=== PATIENT | male | born 1965 | race Caucasian/White ===

== ENCOUNTER 2019-07-21 12:30 | Outpatient (RCR) | payer BC, SELFPAY ==
[2019-07-09 09:49] VITALS: BP_SYST 80
--- NOTE | 2019-07-09 11:14 | PTOPEVAL ---
Thank you for referring Juan Manuel Sanchez to [facility]. Please review, sign, date and return this plan of care KITA. Pt referred to therapy due to adhesive capsulitis of left shoulder. He demonstrates impairments of shoulder with range, strength and function. He requires additional skilled therapy 2x/wk x 6-8 wk to improve impairments and achieve therapy goals. I agree with and certify that the following plan of care is medically necessary. Referring Physician Date Attending Provider: Tyson Pettit MD *PT Outpatient Evaluation Start: 07/09/19 09:48 Freq: Status: Active Protocol: Document 07/09/19 09:49 MARRY (Rec: 07/09/19 10:51 MARRY [id number]) Therapy Assessment Status Assessment Status Assessment Status Evaluation Outpatient Past Medical History Past Medical History Source of Past Medical History Patient,Recalled from Previous Visit, Confirmed with Patient /Family Cardiovascular History Hx Hypertension Yes Gastrointestinal History Hx Gastroesophageal Reflux Disease Yes Musculoskeletal History Hx Other Musculoskeletal Disorders Yes: R shoulder adhesive capsulitis 2015, left shoulder adhesive capsulitis Endocrine History Hx Hypothyroidism Yes Hx Other Endocrine Disorders Yes: weight gain Evaluation Information Problem Diagnosis left shoulder adhesive capsulitis Onset 2 months ago Cause unknown Additional Evaluation Detail history of right shoulder adhesive capsulitis Subjective Information Reports he is performing self Query Text:As Reported By Patient/ treatment to address his Family decreased shoulder range. He cut down 60 trees for the past year that he questions contributed to his pain. Massage therapist coming to his house every 2 wk for the past 5 years. Received a cortison injections, biofreeze , over the counter medication, and self treatment to improve pain and motion. He is able to perform all activities below shoulder level. He reports pain and limitations with any motions over shoulder or with reaching behind. Diagnostic Tests X-Rays For This Problem Yes Previous Treatments Previous Treatments For Thi
--- NOTE | 2019-08-12 13:21 | PCPTNOTE ---
Admitting Provider: Attending Provider: Tyson Pettit MD Patient:Juan Manuel Sanchez Date of :1965 Discharge Note Patient has not returned for any further treatments since 07/21/2019, therefore he will be discharged at this time. Patient?s initial visit was on 07/09/2019 09:45 and he had a total of 2 visits. The goals have been not been met. Thank you for referring this patient to [facility]. Please review, sign, date and return this discharge summary KITA. I have been updated about the patient's current status and I agree with discharge from the above service at this time. Referring Physician Date
== END 2019-08-12 15:44 | disposition home or self-care (01) ==
LOC: ANHPT 12:30
PROVIDERS: PCP Family Medicine; Visit Provider Orthopaedic Surgery
DX: M75.00 Adhesive capsulitis of unspecified shoulder (principal)
CPT/HCPCS: 97035; 97110; 97140; 97162

== ENCOUNTER 2020-02-03 02:20 | Outpatient (CLI) | payer BC, SELFPAY ==
[2020-02-03 22:42] LABS: SARS-CoV-2 RNA PCR Negative
== END 2020-02-03 02:21 | disposition home or self-care (01) ==
LOC: ANHCOVIDDT 02:20
PROVIDERS: PCP Family Medicine; Visit Provider Otolaryngology
DX: Z01.812 Encounter for preprocedural laboratory examination (principal); Z20.828 Contact with and (suspected) exposure to other viral communicable diseases
CPT/HCPCS: 87635; C9803; U0003

== ENCOUNTER 2020-02-03 09:03 | Outpatient (CLI) | payer BC, SELFPAY ==
--- NOTE | 2020-02-03 09:05 | ECG_ITS ---
Measurements Intervals [place] Rate: 61 P: 9 IN: 149 QRS: 23 QRSD: 89 T: 32 QT: 406 QTc: 411 Interpretive Statements SINUS RHYTHM BASELINE ARTIFACT- I, III, AVL, AVF NORMAL ECG Electronically Signed On 02-03-2020 9:35:18 ECDIS N NAVIGATION OPERATOR by Rudolph Rachel D.O.
== END 2020-02-03 09:04 | disposition home or self-care (01) ==
LOC: ANHSURGERY 09:05
PROVIDERS: PCP Family Medicine; Visit Provider Otolaryngology
DX: Z01.810 Encounter for preprocedural cardiovascular examination (principal); E78.2 Mixed hyperlipidemia
CPT/HCPCS: 93005

== ENCOUNTER 2020-02-06 00:25 | Day surgery (SDC) | payer BC, SELFPAY ==
[2020-01-30 13:35] VITALS: BMI 35.1
--- NOTE | 2020-02-05 09:37 | WPDANESEPPF ---
Anes - Initial Pre Proc Eval Procedure: Operation Date: 02/06/20 10:45 Proposed Procedures p Tonsillectomy - Maury Sabillon MD Date/Time: 02/05/20 09:37 Surgeon: Maury Sabillon MD Pre Op Diagnosis: Dysphagia Patient Data Age: 54 Gender: M Height: 1.7 m Weight: 101.8 kg Allergies Allergy/AdvReac Type Severity Reaction Status Date / Time No Known Allergies Allergy Verified 02/06/20 08:46 Home Medications Medication Instructions Recorded Confirmed Type atorvastatin 20 mg tablet 20 mg PO DAILY #90 tablet 06/23/19 02/06/20 Rx levothyroxine 100 mcg tablet 100 mcg PO DAILY #90 tablet 09/09/19 02/06/20 Rx escitalopram oxalate 10 mg tablet 10 mg PO DAILY #90 tablet 09/15/19 02/06/20 Rx folic acid 1 mg tablet 1 mg PO DAILY #90 tablet 09/15/19 02/06/20 Rx ascorbate calcium (vitamin C) 500 500 mg PO DAILY 12/30/19 02/06/20 History mg tablet cyanocobalamin (vitamin B-12) 1,000 mcg PO DAILY 12/30/19 02/06/20 History 1,000 mcg capsule prokrqal-tye-dkeas acid 300 1 tablet PO DAILY 12/30/19 02/06/20 History mcg-lycopene 600 mcg-lutein 300 mcg tablet esomeprazole magnesium 40 mg 40 mg PO BID #180 cap 12/31/19 02/06/20 Rx capsule,delayed release oxycodone 5 mg PO Q8H PRN #20 tablet 02/06/20 Rx Patient hx anesthesia problems: none Family hx anesthesia problems: none PMFSH Past Medical History Medical History (Updated 02/05/20 @ 15:02 by Maury Sabillon MD) Abnormal fasting glucose Chronic depression Elevated liver enzymes Essential (primary) hypertension Folic acid deficiency Hypothyroidism, unspecified Mixed hyperlipidemia Otitis externa Pharyngitis Ulcer Surgical History Surgical History (Updated 07/01/19 @ 07:50 by Jessica Ly) Previous back surgery (~2002) 2002 Dr Siddiqui Family History Family History (Updated 07/01/19 @ 07:52 by Jessica Ly) Father Family history of cardiovascular disease, Onset Age: 60 Hypertension Grandparent Family history of malignant neoplasm, Onset Age: 55 Mother Carcinoma of colon, Onset Age: 70 Family history of lung cancer, Onset Age: 70 Hypertension Social History Social History (Updated 12/30/19 @ 15:37 by Anya Rangel [facility]) Smoking status: Never smoker Second hand tobacco smoke exposure: No Alcohol intake: current Drinks per week: 2 Substance use: never Substance use type: does not use Living arrangements: with family Additional living arrangements comments: Ne, and Nadiya Sanchez Additional occupation/education comments: [employer] Gender identity (if verbalized by the patient): Male Spiritual care concerns: No Anes - Eval Final PreProcedure Day of Procedure 02/05/20 09:37 Patient weight: obese Heart: regular rate and rhythm Lungs: clear to auscultation and normal air movement Airway: Mallampati scale class II Neurological: alert and oriented Last oral intake: >/= 8 hours ASA classification: III Emergent: no Anesthetic plan: proceed Anesthesia type and monitoring: general ETT and standard monitoring Informed Consent: The patient's anesthetic plan and its attendant risks and benefits were discussed with the patient/family/POA. Questions were solicited and answers provided to the satisfaction of the patient/family/POA.
--- NOTE | 2020-02-05 15:01 | PM.IMHP ---
H&P: HPI History of Present Illness Date/Time: 02/05/20 15:01 Chief Complaint: Tonsillar hypertrophy, tonsillar asymmetry, dysphagia, globus sensation, Narrative: Juan Manuel Sanchez is a 54 year old male who presents for planned surgical procedure. He reports no changes in his medical history or symptoms. Review of Systems Constitutional: Constitutional: Denies fatigue, Denies fever(s) and Denies lethargy Eyes: Eyes: Denies blurry vision and Denies change in vision ENT: Reports as per HPI Cardiovascular: Cardiovascular: Denies chest pain Respiratory: Respiratory: Denies cough Endocrine: Endocrine: Denies fatigue Hematologic/Lymphatic: Hematologic/Lymphatic: Denies easy bleeding, Denies easy bruising and Denies lymphadenopathy Allergic/Immunologic: Allergic/Immunologic: Denies seasonal rhinorrhea [facility] Past Medical History Medical History (Updated 02/05/20 @ 15:02 by Maury Sabillon MD) Abnormal fasting glucose Chronic depression Elevated liver enzymes Essential (primary) hypertension Folic acid deficiency Hypothyroidism, unspecified Mixed hyperlipidemia Otitis externa Pharyngitis Ulcer Surgical History Surgical History (Updated 07/01/19 @ 07:50 by Jessica Ly) Previous back surgery (~2002) 2002 Dr Siddiqui Family History Family History (Updated 07/01/19 @ 07:52 by Jessica Ly) Father Family history of cardiovascular disease, Onset Age: 60 Hypertension Grandparent Family history of malignant neoplasm, Onset Age: 55 Mother Carcinoma of colon, Onset Age: 70 Family history of lung cancer, Onset Age: 70 Hypertension Social History Social History (Updated 12/30/19 @ 15:37 by Anya Rangel [facility]) Smoking status: Never smoker Second hand tobacco smoke exposure: No Alcohol intake: current Drinks per week: 2 Substance use: never Substance use type: does not use Additional living arrangements comments: Ne, and Nadiya Sanchez Additional occupation/education comments: [employer] Gender identity (if verbalized by the patient): Male Spiritual care concerns: No Meds Home Medications and Allergies Home Medications Medication Instructions Recorded Confirmed Type atorvastatin 20 mg tablet 20 mg PO DAILY #90 tablet 06/23/19 01/30/20 Rx levothyroxine 100 mcg tablet 100 mcg PO DAILY #90 tablet 09/09/19 01/30/20 Rx escitalopram oxalate 10 mg tablet 10 mg PO DAILY #90 tablet 09/15/19 01/30/20 Rx folic acid 1 mg tablet 1 mg PO DAILY #90 tablet 09/15/19 01/30/20 Rx ascorbate calcium (vitamin C) 500 500 mg PO DAILY 12/30/19 01/30/20 History mg tablet cyanocobalamin (vitamin B-12) 1,000 mcg PO DAILY 12/30/19 01/30/20 History 1,000 mcg capsule dtmlzqcp-imr-bnrix acid 300 1 tablet PO DAILY 12/30/19 01/30/20 History mcg-lycopene 600 mcg-lutein 300 mcg tablet esomeprazole magnesium 40 mg 40 mg PO BID #180 cap 12/31/19 01/30/20 Rx capsule,delayed release Allergies Allergy/AdvReac Type Severity Reaction Status Date / Time NKFA Allergy Unknown unknown Uncoded 01/30/20 13:15 NO KNOWN DRUG ALLERGIES Allergy Unknown Y Uncoded 01/30/20 13:15 (Class Allergy) Exam Const: General: cooperative, healthy appearing, comfortable, well developed and alert HENMT: Head: normal to inspection, normocephalic and atraumatic Ears: hearing grossly normal bilaterally, external ears normal, TM's normal bilaterally and EAC's normal General nose exam: Normal external nose present, Normal nares present, No nasal polyps present, Normal nasal mucous membranes and turbinates present and Normal septum present Face and sinus: normal facial exam Mouth: Yes Normal oral and palatal mucosa present, Yes lip normal, Yes tongue normal, Yes oropharynx normal and Yes moist mucous membranes Teeth and gingiva: dentition normal and gingiva normal Throat: posterior oropharynx normal, tonisls abnormal ( Right greater than left 3+) and uvula
[2020-02-06] VITALS (8 sets, daily range): BP systolic 122–155; BP diastolic 78–102; PULSE 55–79; RESP 10–62; TEMP 36.1–36.4; O2SAT 97–100
--- NOTE | 2020-02-06 07:01 | WPDHPUPDATE1 ---
History and Physical Update Update Date/Time: 02/06/20 07:01 History and Physical has been reviewed, including an updated exam of the patient. There are NO changes in the patient's condition. Risks, benefits, and alternatives have been discussed and questions answered. Patient agrees to proceed with procedure.
[2020-02-06] MEDS: ACETAMINOPHEN 500 MG TABLET 1000 MG PO (09:06)
[2020-02-06] MEDS: LACTATED RINGERS 1,000 ML 30 ML IV CONT ×2 (09:11→11:38)
--- NOTE | 2020-02-09 08:03 | PM.PROC ---
Procedure Note - Detailed Date of procedure: 02/09/20 Pre-op diagnosis: Dysphagia Post-op diagnosis: same Procedure performed: 1. Tonsillectomy Description of procedure: The patient was correctly identified and consent was verified in the preoperative holding area. The patient was then brought to the operating room and time-out was performed. General anesthesia was induced and endotracheal tube was secured the midline and taped. The patient was then prepped and draped for the aforementioned procedure. The McIvor mouthgag was placed revealing tonsils which were 1+. Of note the right tonsil had a small inferior base portion. Bovie at a setting of 10 was utilized to remove the tonsils in the extracapsular plane. Hemostasis was achieved using suction Bovie electrocautery at a setting of 12. Following the procedure hemostasis was noted to be excellent. Care of the patient was turned over to Anesthesiology. I performed all dictated portions of the procedure. Anesthesia: GLMA Surgeon: Maury Sabillon MD Estimated blood loss (mL): 15 Pathology: yes Complications: No immediate complications Condition: stable Disposition: PACU
== END 2020-02-06 13:20 | disposition home or self-care (01) ==
PROVIDERS: PCP Family Medicine; Visit Provider Otolaryngology
PROC: (CPT 42826; principal; 2020-02-06 10:45)
DX: J35.01 Chronic tonsillitis (principal); J35.1 Hypertrophy of tonsils; R13.10 Dysphagia, unspecified; E03.9 Hypothyroidism, unspecified; F32.9 Major depressive disorder, single episode, unspecified; I10 Essential (primary) hypertension; E53.8 Deficiency of other specified B group vitamins; E78.2 Mixed hyperlipidemia; E66.9 Obesity, unspecified; Z68.36 Body mass index [BMI] 36.0-36.9, adult
CPT/HCPCS: 42826; 88302; 88304; A9270; J0330; J1100; J2250; J2370; J2405; J2704; J3010; J7120

== ENCOUNTER 2020-02-12 21:16 | Emergency (ER) | payer BC, SELFPAY ==
[2020-02-12 21:20] VITALS: BP 123/86; PULSE 89; RESP 18; TEMP 37.1; O2SAT 97
--- NOTE | 2020-02-12 21:23 | ED.GENADULT ---
HPI - General Adult General Chief complaint: Unspecified Stated complaint: tonsil bleed Time Seen by Provider: 02/12/20 21:17 History of Present Illness HPI narrative: 54 yo male brought in to the ED by EMS for post tonsillectomy bleeding. He had his tonsils removed 6 days ago. He had been doing well until earlier this evening when He had rapid bleeding which filled his mouth several times. He was seen at an outside hospital. CBC and vitals were stable. He received nebulized TXA. They chose to transfer Related Data Home Medications Medication Instructions Recorded Confirmed ascorbate calcium (vitamin C) 500 500 mg PO DAILY 12/30/19 02/06/20 mg tablet cyanocobalamin (vitamin B-12) 1,000 mcg PO DAILY 12/30/19 02/06/20 1,000 mcg capsule kzuofabm-orm-gqfkn acid 300 1 tablet PO DAILY 12/30/19 02/06/20 mcg-lycopene 600 mcg-lutein 300 mcg tablet Allergies Allergy/AdvReac Type Severity Reaction Status Date / Time No Known Allergies Allergy Verified 02/06/20 08:46 Review of Systems Review of Systems: All systems reviewed & are unremarkable except as noted in HPI and below Constitutional: Constitutional: Denies chills and Denies fever(s) ENT: Reports system reviewed and no additional complaints, except as documented Cardiovascular: Cardiovascular: Denies chest pain Respiratory: Respiratory: Denies dyspnea Neurologic: Denies dizziness and Denies weakness Hematologic/Lymphatic: Hematologic/Lymphatic: Denies easy bleeding and Denies easy bruising PMFSH Past Medical History Medical History Abnormal fasting glucose Chronic depression Elevated liver enzymes Essential (primary) hypertension Folic acid deficiency Hypothyroidism, unspecified Mixed hyperlipidemia Otitis externa Pharyngitis Ulcer Surgical History Surgical History History of tonsillectomy (02/06/20) Previous back surgery (~2002) 2002 Dr Siddiqui Family History Family History Father Family history of cardiovascular disease, Onset Age: 60 Hypertension Grandparent Family history of malignant neoplasm, Onset Age: 55 Mother Carcinoma of colon, Onset Age: 70 Family history of lung cancer, Onset Age: 70 Hypertension Social History Social History Smoking status: Never smoker Second hand tobacco smoke exposure: No Alcohol intake: current Drinks per week: 2 Substance use: never Substance use type: does not use Additional living arrangements comments: Ne, and Nadiya Sanchez Additional occupation/education comments: [employer] Gender identity (if verbalized by the patient): Male Spiritual care concerns: No Exam Const: General: healthy appearing, no acute distress and alert Orientation/consciousness: patient oriented x3 HENMT: Other: Large clot over left tonsillectomy site. No active bleeding Neck: Neck: normal visual inspection and no lymphadenopathy Chest: Chest palpation & inspection: no tenderness Resp: Effort & Inspection: normal respiratory effort Auscultation: clear to auscultation bilaterally, no rales, no rhonchi and no wheezes Cardio: Jugular venous distension: no JVD Rate: regular rate Rhythm: regular rhythm Heart sounds: no murmurs GI: Inspection: non-distended GI Palp: Yes Soft to palpation and No Tenderness to palpation present (GI) Skin: General skin exam: normal color Neuro: General: patient oriented x3 and moves all extremities Speech: normal speech Extrem: General: no edema Psych: Appearance: well kempt Affect: normal affect Course Vital Signs Vital signs: Vital Signs Temperature 37.1 C 02/12/20 21:20 Pulse Rate 89 02/12/20 21:20 Respiratory Rate 18 02/12/20 21:20 Blood Pressure 123/86
[2020-02-12 22:45] VITALS: BP 125/90; PULSE 94; RESP 18; O2SAT 98
[2020-02-12] MEDS: BENZOCAINE/TETRACAINE SPRAY (*SP) 56 ML AEROSOL 1 SPRAY (22:55)
--- NOTE | 2020-02-12 23:28 | WPDCN ---
Assessment and Plan Assessment and plan (1) History of tonsillectomy: Onset Date: 02/06/20 Code(s): Z90.89 - Acquired absence of other organs Status: Acute Assessment and Plan: Discussed normal post operative tonsillectomy care with the patient including no strenuous activity, increased hydration, tylenol for pain (stop ibuprofen). No hard foods. He will call with any questions/concerns. (2) Post-tonsillectomy hemorrhage: Code(s): J95.830 - Postprocedural hemorrhage of a respiratory system organ or structure following a respiratory system procedure Status: Acute HPI Data of Consult Date/Time: 02/12/20 23:28 Primary Care Provider: Dale Vazquez MD Consult Narrative Narrative: Juan Manuel Sanchez is a 54 year old male s/p tonsillectomy one week ago. Presents from outside hospital with left sided bleeding. Per report Hgb wnl. No inciting factors. Review of Systems Constitutional: Constitutional: Denies fatigue, Denies fever(s) and Denies lethargy Eyes: Eyes: Denies blurry vision and Denies change in vision ENT: Reports as per HPI Cardiovascular: Cardiovascular: Denies chest pain Respiratory: Respiratory: Denies cough Endocrine: Endocrine: Denies fatigue Hematologic/Lymphatic: Hematologic/Lymphatic: Denies lymphadenopathy Allergic/Immunologic: Allergic/Immunologic: Denies seasonal rhinorrhea [facility] Past Medical History Medical History (Updated 02/12/20 @ 23:34 by Maury Sabillon MD) Abnormal fasting glucose Chronic depression Elevated liver enzymes Essential (primary) hypertension Folic acid deficiency Hypothyroidism, unspecified Mixed hyperlipidemia Otitis externa Pharyngitis Ulcer Surgical History Surgical History (Updated 02/09/20 @ 08:09 by Dale Vazquez MD) History of tonsillectomy (02/06/20) Previous back surgery (~2002) 2002 Dr Siddiqui Family History Family History (Updated 07/01/19 @ 07:52 by Jessica Ly) Father Family history of cardiovascular disease, Onset Age: 60 Hypertension Grandparent Family history of malignant neoplasm, Onset Age: 55 Mother Carcinoma of colon, Onset Age: 70 Family history of lung cancer, Onset Age: 70 Hypertension Social History Social History (Updated 12/30/19 @ 15:37 by Anya Rangel [facility]) Smoking status: Never smoker Second hand tobacco smoke exposure: No Alcohol intake: current Drinks per week: 2 Substance use: never Substance use type: does not use Additional living arrangements comments: Ne, and Nadiya Sanchez Additional occupation/education comments: [employer] Gender identity (if verbalized by the patient): Male Spiritual care concerns: No Meds Home Medications and Allergies Home Medications Medication Instructions Recorded Confirmed Type atorvastatin 20 mg tablet 20 mg PO DAILY #90 tablet 06/23/19 02/06/20 Rx levothyroxine 100 mcg tablet 100 mcg PO DAILY #90 tablet 09/09/19 02/06/20 Rx escitalopram oxalate 10 mg tablet 10 mg PO DAILY #90 tablet 09/15/19 02/06/20 Rx folic acid 1 mg tablet 1 mg PO DAILY #90 tablet 09/15/19 02/06/20 Rx ascorbate calcium (vitamin C) 500 500 mg PO DAILY 12/30/19 02/06/20 History mg tablet cyanocobalamin (vitamin B-12) 1,000 mcg PO DAILY 12/30/19 02/06/20 History 1,000 mcg capsule zcjpxqol-ead-dhgay acid 300 1 tablet PO DAILY 12/30/19 02/06/20 History mcg-lycopene 600 mcg-lutein 300 mcg tablet esomeprazole magnesium 40 mg 40 mg PO BID #180 cap 12/31/19 02/06/20 Rx capsule,delayed release oxycodone 5 mg PO Q8H PRN #20 tablet 02/06/20 Rx Allergies Allergy/AdvReac Type Severity Reaction Status Date / Time No Known Allergies Allergy Verified 02/06/20 08:46 Vital Signs Vital Signs - 24 hr 02/12/20 21:20 Temperature 37.1 C Pulse Rate 89 Respiratory Rate 18 Blood Pressure 123/86 Pulse Oximetry 97 Exam Const: General: cooperative, healthy ap
[2020-02-13] VITALS: BP 129/93; PULSE 87; RESP 18; O2SAT 98
== END 2020-02-13 00:15 | disposition home or self-care (01) ==
PROVIDERS: Emergency Provider Emergency Medicine; PCP Family Medicine
DX: J95.830 Postprocedural hemorrhage of a respiratory system organ or structure following a respiratory system procedure (principal); F32.9 Major depressive disorder, single episode, unspecified; I10 Essential (primary) hypertension; E03.9 Hypothyroidism, unspecified; E78.2 Mixed hyperlipidemia
CPT/HCPCS: 99282; A9270

== ENCOUNTER → 2022-12-13 08:08 | Outpatient (CLI) | payer BC, SELFPAY ==
--- NOTE | ~2022-12-13 | XR_ITS ---
Clinical Indication: Pain PA and lateral views of the chest: Comparison: None Findings: The lungs are clear, without evidence of focal consolidation or pleural effusion. Cardiome diastinal silhouette is within normal limits. Bones and soft tissues are unremarkable. Impression: Normal chest. Reviewed, dictated and finalized at location . Impression: Normal chest.
== END ==
PROVIDERS: PCP Family Medicine; Visit Provider Family Medicine
DX: M54.6 Pain in thoracic spine (principal)
CPT/HCPCS: 71046

== ENCOUNTER 2023-01-05 09:35 | Outpatient (CLI) | payer BC, SELFPAY ==
--- NOTE | 2023-01-29 10:53 | WPDSLEEPSTUD ---
Sleep Study Date of Study: 01/05/23 Ordering Provider: Dale Vazquez MD Interpreting Physician: Cassie Martinez DO Sleep Study Type: Split Polysomnogram Height: 1.73 m Weight: 106.594 kg Body Mass Index: 35.7 Neck Circumference (inches): 17.5 [place]: 14 Reason for Sleep Study Unrefreshing sleep, daytime hypersomnia Sleep History The patient is a 57 year old male with previous diagnosis of sleep apnea with CPAP therapy that had a sleep study ordered by his primary care physician to requalify for PAP therapy. The patient frequently awakens from sleep short of breath. He occasionally awakens at night with heartburn, belching or cough. He constantly snores loudly enough that others complain. He frequently has trouble sleeping when he has a cold. He occasionally wakes up gasping for air throughout the night. He frequently has breathing problems at night observed by himself or others. He rarely sweats excessively at night. He rarely has heart palpitations or irregular heartbeats during the night. He frequently falls asleep during the day but never while driving. He denies cataplexy. He occasionally has trouble at school or work due to sleepiness. He rarely feels unable to move while waking up or falling asleep. He occasionally experiences vivid dreamlike scenes upon awakening or falling asleep. He denies feeling afraid of going to sleep. He rarely has nightmares and rarely remembers his dreams. He frequently has thoughts racing through his mind. He occasionally feels sad, depressed and anxious. He occasionally has muscular tension. He denies noticing parts of his body jerk. He occasionally kicks during the night. He rarely has crawling and aching feelings in his legs but occasionally has leg pain during the night. He rarely grinds his teeth during sleep and rarely awakens with morning jaw pain. He is occasionally bothered by pain during the day rarely awakened by pain during the night. He occasionally wakes up feeling stiff in the morning. He occasionally wakes up with sore or achy muscles. He rarely wakes up with pain in the neck, spine or other joints. He goes to bed at 9:00 p.m. on weekdays and at 10:00 p.m. on the weekends. It takes him 30 minutes to fall asleep. He wakes up 3-4 times throughout the night to urinate but is able to fall back asleep within 15 minutes. He wakes up at 4:00 a.m. on weekdays and at 9:00 a.m. on the weekends. He typically gets 3-4 hours of sleep per night. He will stay in bed for 10 minutes after waking up in the morning. He currently lives with his , adult son and his son's girlfriend. His work schedule is not consistent. He will consume caffeinated beverages within 2 hours of bedtime. He denies engaging in physical exercise before bedtime. He will watch television before falling asleep. He will take naps in afternoon or the evening but they are refreshing. He consumes 8 cups of caffeinated beverage per day. He will consumes 3 alcoholic beverages on the weekends. He quit smoking cigarettes 45 years ago. He denies recreational drug use. [facility] Past Medical History Medical History Abnormal fasting glucose Acute bronchitis Acute non-recurrent maxillary sinusitis BMI 33.0-33.9,adult Chronic anxiety Chronic depression Chronic right-sided thoracic back pain (~2021) Controlled diabetes mellitus (08/30/20) fasting glucose 132 and hemoglobin A1c 5.9 on 08/30/2020. Fasting glucose 133 with hemoglobin A1c 6.3 with microalbumin ratio not performed on 01/25/2022. glucose 128 with hemoglobin A1c 6.2 on 12/12/2022. COVID-19 (~03/08/21) tested positive 03/11/2021 Dysphagia Elevated liver enzymes Liver enzymes normal on 12/12/2022 with AST 21 and ALT 37. Essential (primary) hypertension Family history of colon cancer in mother Folic acid deficiency Gagging episode Globus sensation Hypothyroidism, unspecified TSH normal at
[2023-01-29 11:07] VITALS: BMI 35.7
== END 2023-01-06 07:08 | disposition home or self-care (01) ==
LOC: ANHCSM 09:35
PROVIDERS: PCP Family Medicine; Visit Provider Family Medicine
DX: G47.33 Obstructive sleep apnea (adult) (pediatric) (principal); I10 Essential (primary) hypertension; E11.9 Type 2 diabetes mellitus without complications; E03.9 Hypothyroidism, unspecified; E78.5 Hyperlipidemia, unspecified
CPT/HCPCS: 95811

== ENCOUNTER 2023-05-25 13:10 | Outpatient (CLI) | payer BC, SELFPAY ==
[2023-05-25 14:10] LABS: Influenza A QL RT-PCR Negative (Negative); Influenza B QL RT-PCR Negative (Negative); RSV RNA, RT-PCR Negative (Negative); SARS-CoV-2 RNA PCR Negative (Negative)
== END 2023-05-25 13:11 | disposition home or self-care (01) ==
LOC: ANHLAB 13:13
PROVIDERS: PCP Family Medicine; Visit Provider Nurse Practitioner Family
DX: J11.1 Influenza due to unidentified influenza virus with other respiratory manifestations (principal); Z20.822 Contact with and (suspected) exposure to COVID-19
CPT/HCPCS: 87637